=== PATIENT | male | born 1995 | race African-American/Black ===

== ENCOUNTER 2022-02-15 10:13 | Emergency (ER) | payer OTHER ==
[2022-02-15 10:27] VITALS: BP 125/69
--- NOTE | 2022-02-15 10:59 | XRAY Report ---
PROCEDURE: Knee 4 View RT INDICATIONS: Trauma TECHNIQUE: 4 views of the right knee(s) were acquired. COMPARISON: None. FINDINGS: Bones: No fractures or dislocations. No suspicious bony lesions. Soft tissues: Small joint effusion. No suspicious soft tissue calcifications. IMPRESSION: Small suprapatellar joint effusion. No other acute abnormality. Reviewed by: Luis Fuentes on 02/15/2022 9:58 AM [facility] Approved by: Luis Fuentes on 02/15/2022 9:58 AM [facility] Station ID: [id number]
--- NOTE | 2022-02-15 11:43 | ED Physician Documentation ---
PD HPI LOWER EXT INJURY - Stated complaint Stated Complaint: RT KNEE PAIN/INJURY - Chief complaint Chief Complaint: Trauma Ext - History obtained from History obtained from: Patient - Additional information Additional information: The patient comes to the emergency department chief complaint of right knee injury during a football game. He states he twisted his knee and is not exactly sure what happened in the process but that he has had pain and a little swelling since. He does not remember if he heard a pop or snap. No other complaints at this time. No prior injury to the knee. He has been able to walk, but it hurts. Review of Systems Ten Systems: 10 systems reviewed and negative Constitutional: reports: Reviewed and negative Eyes: reports: Reviewed and negative Ears: reports: Reviewed and negative Nose: reports: Reviewed and negative Throat: reports: Reviewed and negative Cardiac: reports: Reviewed and negative Respiratory: reports: Reviewed and negative GI: reports: Reviewed and negative : reports: Reviewed and negative Skin: reports: Reviewed and negative Musculoskeletal: reports: Joint pain, Joint swelling, Pain with weight bearing Neurologic: reports: Reviewed and negative Psychiatric: reports: Reviewed and negative Endocrine: reports: Reviewed and negative Immunocompromised: reports: Reviewed and negative PD PAST MEDICAL HISTORY - Present Medications Home Medications: Ambulatory Orders Medication Instructions Recorded Confirmed HYDROcod/ACETAM 5/325 [Branson 5/325] 1 tablet PO Q6H PRN #7 tablet 02/15/22 - Allergies Allergies/Adverse Reactions: Allergies Allergy/AdvReac Type Severity Reaction Status Date / Time No Known Drug Allergies Allergy Verified 02/15/22 10:25 PD ED PE NORMAL - Vitals Vital signs reviewed: Yes - General General: Alert and oriented X 3, No acute distress, Well developed/nourished - HEENT HEENT: Atraumatic, PERRL, EOMI, Moist mucous membranes - Neck Neck: Supple, no meningeal sign - Cardiac Cardiac: Strong equal pulses - Respiratory Respiratory: No respiratory distress - Derm Derm: Normal color, Warm and dry, No rash - Extremities Extremities: No deformity, Other (Mild edema right Medial knee. Knee is stable. No clicking or popping with range of motion. Flexion moderately limited, secondary to pain.) - Neuro Neuro: Alert and oriented X 3 - Psych Psych: Normal mood, Normal affect Results - Vitals Vitals: Oxygen O2 Source Room air - Rads (name of study) Right knee x-ray series Radiology: Final report received, EMP read indepedently, See rad report (Small peripatellar effusion otherwise negative) PD MEDICAL DECISION MAKING - ED course Complexity details: reviewed results, re-evaluated patient, considered differential, d/w patient ED course: The patient was found to have an x-ray negative for fracture and was placed in an articulating knee brace. I discussed with him that I felt he had sprained his knee. We have discussed symptomatic management and the timeline for healing. The patient is instructed to follow-up with his primary doctor if he is not noticing significant improvement in the next 2 weeks. Departure - Departure Disposition: Home, Self Care Clinical Impression: Knee sprain Qualifiers: Encounter type: initial encounter Involved ligament of knee: unspecified ligament Laterality: right Qualified Code(s): S83.91XA - Sprain of unspecified site of right knee, initial encounter Condition: Stable Instructions: ED Sprain Knee Prescriptions: HYDROcod/ACETAM 5/325 [Branson 5/325] 1 tablet PO Q6H PRN #7 tablet PRN Reason: Pain Comments: Your prescription has been electronically transmitted to [facility] pharmacy in [place]. Forms: Activity restrictions Discharge Date/Time: 02/15/22 12:14
== END 2022-02-15 12:14 | disposition home or self-care (01) ==
LOC: ED 10:13
DX: S83.91XA Sprain of unspecified site of right knee, initial encounter (principal); X58.XXXA Exposure to other specified factors, initial encounter; Y93.61 Activity, american tackle football
CPT/HCPCS: 99283